=== PATIENT | female | born 1970 | race African-American/Black ===

== ENCOUNTER 2020-12-09 15:52 | Emergency (ER) | payer OTHER ==
[~2020-12-09 15:52] MED LIST: ALL DAY ALL1 MG/1 ML PO; AMOXICILLIN500 MG PO; BACTRIM DS TAB1 EACH PO; CHLORTHALIDONE25 MG PO; DICYCLOMINE HCL20 MG PO; GLUCOPHAGE500 MG PO; NORCO 5-325 TA1 EACH PO; OXYGEN; PRINIVIL20 MG PO; PULMICORT0.5 MG/2 M NEB; TENORMIN50 MG PO; VENTOLIN (2.5 MG/3 M INH
[2020-12-09 17:05] LABS: BASOPHIL 0.4 % (0-2); EOSINOPHIL 0.4 % (0-5); HCT 24.7 % (37.0-47.0); HGB 7.6 g/dl (12.5-16.0); LYMPHOCYTE 17.3 % (15-48); MCH 26.7 pg (25.0-31.0); MCHC 30.8 g/dL (32.0-36.0); MCV 86.7 fL (78.0-100.0); MONOCYTE 4.6 % (0-12); MPV 10.8 fL (6.0-9.5); NRBC 0; PLT 254 K/uL (150-400); RBC 2.85 M/uL (4.20-5.40); RDW 17.5 % (11.5-14.0); WBC 2.8 K/uL (4.0-10.5)
[2020-12-09 17:06] LABS: NEUTROPHIL 75.9 % (41-80)
[2020-12-09 17:17] LABS: BILIRUBIN 1+ mg/dL (NEGATIVE); BLOOD 2+ Ery/uL (NEGATIVE); CLARITY HAZY (CLEAR); COLOR YELLOW (YELLOW); GLUCOSE (U) NORMAL (NORMAL); LEUKOCYTES TRACE Leu/uL (NEGATIVE); NITRITE NEGATIVE (NEGATIVE); PROTEIN 2+ mg/dL (NEGATIVE); SPECIFIC GRAVITY >=1.030 (1.001-1.030); UROBILINOGEN 0.2 mg/dL (0.2-1.0)
[2020-12-09 17:21] LABS: ALBUMIN 1.9 g/dL (3.4-5.0); BILIRUBIN - TOTAL 0.3 mg/dL (0.2-1.0); BUN/CREAT RATIO (CALC) 15.9 RATIO; CREATININE 1.26 mg/dL (0.51-0.95); GLOBULIN (CALCULATION) 4.7 g/dL; POTASSIUM 3.5 mmol/L (3.5-5.1); TOTAL PROTEIN 6.6 g/dL (6.4-8.2)
[2020-12-09 17:23] LABS: AMORPHOUS URATES CRYSTALS TRACE; BACTERIA 3+; STARCH GRANULES PRESENT; YEAST PRESENT
[2020-12-09 17:51] LABS: CORONAVIRUS 2019 SARS-COV-2 NEGATIVE (NEGATIVE); INFLUENZA A NAA NEGATIVE (NEGATIVE)
[2020-12-09] MEDS ORDERED: LEVAQUIN750 MG PO (18:04)
[2020-12-09] MEDS ORDERED: VENTOLIN HFA IN18 GM INH (18:05)
[2021-01-01] MEDS ORDERED: VITAMIN D350 MC3 PO (09:23)
== END 2020-12-09 18:26 | disposition home or self-care (01) ==
LOC: FER 15:52
PROVIDERS: Nurse Practitioner Family
DX: J18.9 Pneumonia, unspecified organism (principal); I10 Essential (primary) hypertension; Z79.899 Other long term (current) drug therapy; Z20.822 Contact with and (suspected) exposure to COVID-19
CPT/HCPCS: 36415; 71045; 80053; 81001; 85025; J1642; U0002

== ENCOUNTER → 2021-01-01 | Day surgery (SDC) | payer OTHER ==
[~2021-01-01] MED LIST changes: +BACTROBAN NASAL1 GM; +LEVAQUIN750 MG PO; +VENTOLIN HFA IN18 GM INH; +VIBRAMYCIN100 MG PO; +VITAMIN D350 MC3 PO
[2021-01-01 10:05] LABS: HCT 31.2 % (37.0-47.0); HGB 9.6 g/dl (12.5-16.0); MCH 26.6 pg (25.0-31.0); MCHC 30.8 g/dL (32.0-36.0); MCV 86.4 fL (78.0-100.0); MPV 11.3 fL (6.0-9.5); RBC 3.61 M/uL (4.20-5.40)
[2021-01-01 10:28] LABS: ALBUMIN 1.8 g/dL (3.4-5.0); BILIRUBIN - TOTAL 0.3 mg/dL (0.2-1.0); BUN/CREAT RATIO (CALC) 22.2 RATIO; CREATININE 1.85 mg/dL (0.51-0.95); POTASSIUM 4.3 mmol/L (3.5-5.1); TOTAL PROTEIN 6.8 g/dL (6.4-8.2)
== END | disposition home or self-care (01) ==
LOC: FAS 08:57
PROVIDERS: Surgery
DX: D75.89 Other specified diseases of blood and blood-forming organs (principal); D64.9 Anemia, unspecified; D72.819 Decreased white blood cell count, unspecified; D61.818 Other pancytopenia; K21.9 Gastro-esophageal reflux disease without esophagitis; J44.9 Chronic obstructive pulmonary disease, unspecified; F32.9 Major depressive disorder, single episode, unspecified; E11.9 Type 2 diabetes mellitus without complications; I11.0 Hypertensive heart disease with heart failure; I50.9 Heart failure, unspecified; Z79.84 Long term (current) use of oral hypoglycemic drugs; Z91.040 Latex allergy status
CPT/HCPCS: 36415; 80053; J1642; J2250; J2704; J7120

== ENCOUNTER 2021-01-23 12:41 | Emergency (ER) | payer OTHER ==
[~2021-01-23 12:41] MED LIST changes: -BACTROBAN NASAL1 GM; -VIBRAMYCIN100 MG PO
[2021-01-23 13:39] LABS: HCT 33.3 % (37.0-47.0); MCH 27.2 pg (25.0-31.0); MCV 90.5 fL (78.0-100.0); MPV 9.6 fL (6.0-9.5); RBC 3.68 M/uL (4.20-5.40); RDW 17.7 % (11.5-14.0)
[2021-01-23 13:55] LABS: BILIRUBIN - TOTAL 0.3 mg/dL (0.2-1.0); BUN/CREAT RATIO (CALC) 20.9 RATIO; CREATININE 0.86 mg/dL (0.51-0.95); GLOBULIN (CALCULATION) 4.6 g/dL; POTASSIUM 4.1 mmol/L (3.5-5.1); TOTAL PROTEIN 6.6 g/dL (6.4-8.2)
[2021-01-23 15:59] LABS: BILIRUBIN NEGATIVE (NEGATIVE); BLOOD 3+ Ery/uL (NEGATIVE); CLARITY CLEAR (CLEAR); COLOR YELLOW (YELLOW); GLUCOSE (U) NORMAL (NORMAL); LEUKOCYTES 2+ Leu/uL (NEGATIVE); NITRITE NEGATIVE (NEGATIVE); PROTEIN 2+ mg/dL (NEGATIVE); SPECIFIC GRAVITY 1.025 (1.001-1.030); UROBILINOGEN 0.2 mg/dL (0.2-1.0); pH 5.5 (5.0-9.0)
[2021-01-23 16:08] LABS: BACTERIA 1+; MUCOUS TRACE; URINARY WBC 20-50
[2021-01-23] MEDS ORDERED: BACTROBAN NASAL1 GM (16:39)
[2021-01-23] MEDS ORDERED: VIBRAMYCIN100 MG PO (16:39)
== END 2021-01-23 17:35 | disposition home or self-care (01) ==
LOC: FER 12:41
PROVIDERS: Emergency Medicine
DX: J90 Pleural effusion, not elsewhere classified (principal); N39.0 Urinary tract infection, site not specified; L98.419 Non-pressure chronic ulcer of buttock with unspecified severity; I10 Essential (primary) hypertension; Z79.899 Other long term (current) drug therapy; Z20.822 Contact with and (suspected) exposure to COVID-19
CPT/HCPCS: 36415; 71045; 71250; 80053; 81001; 83605; 84484; 87040; 87088; 93005; J1642; J2543; U0002

== ENCOUNTER 2021-07-07 15:57 | Emergency (ER) | payer OTHER ==
[~2021-07-07 15:57] MED LIST changes: +BACTROBAN NASAL1 GM; +VIBRAMYCIN100 MG PO
[2021-07-07 17:20] LABS: BASOPHIL 0 % (0-2); EOSINOPHIL 0 % (0-5); HCT 27.6 % (37.0-47.0); HGB 8.2 g/dl (12.5-16.0); LYMPHOCYTE 10.9 % (15-48); MCH 26.8 pg (25.0-31.0); MCHC 29.7 g/dL (32.0-36.0); MCV 90.2 fL (78.0-100.0); MONOCYTE 3.4 % (0-12); MPV 11.7 fL (6.0-9.5); NEUTROPHIL 84.9 % (41-80); NRBC 0; PLT 149 K/uL (150-400); RBC 3.06 M/uL (4.20-5.40); RDW 16.5 % (11.5-14.0); WBC 3.9 K/uL (4.0-10.5)
[2021-07-07 17:44] LABS: BUN/CREAT RATIO (CALC) 19.2 RATIO; CREATININE 1.04 mg/dL (0.51-0.95)
[2021-07-07 22:51] LABS: BILIRUBIN NEGATIVE (NEGATIVE); BLOOD 2+ Ery/uL (NEGATIVE); CLARITY CLEAR (CLEAR); COLOR YELLOW (YELLOW); GLUCOSE (U) NORMAL (NORMAL); LEUKOCYTES TRACE Leu/uL (NEGATIVE); NITRITE NEGATIVE (NEGATIVE); PROTEIN 2+ mg/dL (NEGATIVE); SPECIFIC GRAVITY 1.025 (1.001-1.030); UROBILINOGEN 0.2 mg/dL (0.2-1.0)
[2021-07-07] MEDS ORDERED: MEDROL 4MG DOSEP4 MG PO (23:08)
== END 2021-07-07 23:41 | disposition home or self-care (01) ==
LOC: FER 15:57
PROVIDERS: Nurse Practitioner Family
DX: B34.9 Viral infection, unspecified (principal); R00.0 Tachycardia, unspecified; D64.9 Anemia, unspecified; I10 Essential (primary) hypertension; Z87.09 Personal history of other diseases of the respiratory system
CPT/HCPCS: 36415; 71045; 80048; 81001; 83880; 84484; 85025; 93005; J1100; J1642; J7030; J7040

== ENCOUNTER → 2022-03-31 | Day surgery (SDC) | payer OTHER ==
[~2022-03-31] VITALS: Ht 162.6 cm; Wt 74.8 kg
[~2022-03-31] MED LIST changes: +AMOX TR-K CLV1 EAC4 PO; +BENLYSTA200 MG/1 M SC; +CLARITIN10 MG PO; +DULOXETINE HCL60 MG PO; +FENTANYL1 EAC4 TOP; +KLOR-CON M2020 MEQ PO; +LASIX40 MG PO; +LISINOPRIL2.5 MG PO; +MEDROL 4MG DOSEP4 MG PO; +MIRTAZAPINE45 MG PO; +PLAQUENIL200 MG PO; +PROTONIX 40MG T40 MG PO
== END | disposition home or self-care (01) ==
LOC: FAS 09:04
DX: D50.0 Iron deficiency anemia secondary to blood loss (chronic) (principal); K31.9 Disease of stomach and duodenum, unspecified; K29.60 Other gastritis without bleeding; K21.9 Gastro-esophageal reflux disease without esophagitis; E11.22 Type 2 diabetes mellitus with diabetic chronic kidney disease; N18.9 Chronic kidney disease, unspecified
CPT/HCPCS: J2704; J7120